=== PATIENT | male | born 1995 | race Caucasian/White ===

== ENCOUNTER 2019-04-28 16:41 | Emergency (ER) | payer MEDICAID ==
[~2019-04-28] VITALS: Ht 175.3 cm; Wt 81.6 kg
[2019-04-28 16:51] VITALS: Ht 175.3 cm; Wt 81.6 kg
[2019-04-28 18:11] VITALS: BP 150/81
== END 2019-04-28 18:11 | disposition home or self-care (01) ==
LOC: ED 16:41
DX: S61.012A Laceration without foreign body of left thumb without damage to nail, initial encounter (principal); W26.0XXA Contact with knife, initial encounter; Y93.89 Activity, other specified; Y92.89 Other specified places as the place of occurrence of the external cause; Y99.8 Other external cause status

== ENCOUNTER 2019-05-02 16:23 | Emergency (ER) | payer OTHER, MEDICAID ==
[~2019-05-02] VITALS: Ht 175.3 cm; Wt 98.9 kg
[2019-05-02 16:39] VITALS: BP 121/85; Ht 175.3 cm; Wt 98.9 kg
== END 2019-05-02 17:19 | disposition home or self-care (01) ==
LOC: ED 16:23
DX: S61.012D Laceration without foreign body of left thumb without damage to nail, subsequent encounter (principal); X58.XXXD Exposure to other specified factors, subsequent encounter